=== PATIENT | male | born 1990 | race Two or more races ===

== ENCOUNTER → 2024-02-22 | Outpatient (REF) | payer OTHER ==
[2024-02-22 18:57] LABS: Trichomonas vaginalis (AMP) NOT DETECTED (NEGATIVE)
[2024-02-22 19:20] LABS: GC DNA AMPLIFICATION NEGATIVE (NEGATIVE)
== END ==
LOC: M SMT 16:54
PROVIDERS: ATTEND Urology
DX: N50.82 Scrotal pain (principal); Z11.3 Encounter for screening for infections with a predominantly sexual mode of transmission; Z72.89 Other problems related to lifestyle

== ENCOUNTER → 2024-03-13 | Outpatient (CLI) | payer OTHER ==
[2024-03-13 16:21] LABS: HIV 1&2 SCREEN NEGATIVE (NEGATIVE)
[2024-03-17 14:47] LABS: HSV 2 IGG TYPE SPECIFIC < 0.90 index (<0.90)
== END ==
LOC: M RAD 14:15
PROVIDERS: ATTEND Urology
DX: N50.82 Scrotal pain (principal)